=== PATIENT | female | born 1985 | race Caucasian/White ===

== ENCOUNTER 2021-10-26 06:37 | Inpatient (IN) | payer OTHER ==
[2021-10-26] VITALS (7 sets, daily range): BP systolic 113–136; BP diastolic 67–81
[~2021-10-26] VITALS: Ht 170.2 cm; Wt 93.0 kg
[2021-10-26] MEDS ORDERED: ABILIFY5 MG PO (09:29)
[2021-10-26] MEDS ORDERED: CORLANOR7.5 MG PO (09:29)
[2021-10-26] MEDS ORDERED: ABILIFY20 MG PO (09:29)
[2021-10-26] MEDS ORDERED: PLAVIX75 MG PO (09:29)
[2021-10-26] MEDS ORDERED: FLUOXETINE HCL20 MG PO (09:29)
[2021-10-26] MEDS ORDERED: ALBUTEROL SULFATE HFA 8GM INHALATION AEROSOL INH PRN (11:00)
[2021-10-26] MEDS ORDERED: ONDANSETRON HCL INJ 2MG/ML 2ML 2 MG/ML VIAL IV PRN (11:30)
[2021-10-26] MEDS: ALBUTEROL/IPRATROPIUM 3 ML NEB NEB PRN ×2 (11:40→19:20)
[2021-10-26] MEDS: PANTOPRAZOLE SOD 40 MG TABEC PO SCH (13:40)
[2021-10-26] MEDS: NIRMATRELVIR/RITONAVIR 1 EACH TABLET PO SCH ×2 (13:40→21:37)
[2021-10-26] MEDS: ATROPINE SULFATE INJ 0.4 MG/ML VIAL IV PRN ×2 (16:50→21:37)
[2021-10-26] MEDS: ZINC SULFATE 220 MG CAP PO SCH (17:00)
[2021-10-26] MEDS: ASCORBIC ACID 500 MG TAB PO SCH (17:00)
[2021-10-26] MEDS: ENOXAPARIN SOD INJ 40 MG/0.4 ML SYR SC SCH (17:00)
[2021-10-27] VITALS (8 sets, daily range): BP systolic 111–132; BP diastolic 69–78
[2021-10-27] MEDS: ATROPINE SULFATE INJ 0.4 MG/ML VIAL IV PRN ×3 (01:50→21:31)
[2021-10-27 06:51] LABS: HEMATOCRIT 37.4 % (34.2-44.1); HEMOGLOBIN 11.8 g/dL (12.0-16.0); LYMPHOCYTES # (AUTO) 1.3 (1.0-3.2); LYMPHOCYTES % 39.9 % (18.0-39.1); MEAN CORPUSCULAR HEMOGLOBIN 29.3 pg (28-32); MEAN CORPUSCULAR HGB CONC 31.6 g/dL (31-35); MEAN CORPUSCULAR VOLUME 92.8 fL (81-99); MONOCYTES # (AUTO) 0.3 (0.2-0.8); NEUTROPHILS # (AUTO) 1.6 (2.1-6.9); NEUTROPHILS % 50.5 % (38.7-80.0); PLATELET COUNT 159 x10e3/uL (140-360); RED BLOOD COUNT 4.03 x10e6/uL (3.6-5.1); RED CELL DISTRIBUTION WIDTH 14.5 % (11.7-14.4)
[2021-10-27] MEDS: ALBUTEROL/IPRATROPIUM 3 ML NEB NEB PRN ×3 (07:00→16:55)
[2021-10-27 07:06] LABS: ANION GAP 12.7 mmol/L (8-16); CALCIUM 7.4 mg/dL (8.4-10.2); CREATININE, SERUM 0.67 mg/dL (0.57-1.11); POTASSIUM 3.7 mmol/L (3.5-5.1)
[2021-10-27] MEDS ORDERED: ARIPIPRAZOLE 20 MG TAB PO SCH ×2 (09:00→11:30)
[2021-10-27] MEDS: CHOLECALCIFEROL 400 UNIT TAB PO SCH (09:13)
[2021-10-27] MEDS: CLOPIDOGREL BISULFATE 75 MG TAB PO SCH (09:13)
[2021-10-27] MEDS: ZINC SULFATE 220 MG CAP PO SCH (09:13)
[2021-10-27] MEDS: FLUOXETINE HCL 20 MG CAP PO SCH (09:13)
[2021-10-27] MEDS: NIRMATRELVIR/RITONAVIR 1 EACH TABLET PO SCH ×2 (09:13→21:14)
[2021-10-27] MEDS: ASCORBIC ACID 500 MG TAB PO SCH ×2 (09:13→16:56)
[2021-10-27] MEDS: PANTOPRAZOLE SOD 40 MG TABEC PO SCH (09:13)
[2021-10-27] MEDS: ACETAMINOPHEN 325 MG TAB PO PRN (11:00)
[2021-10-27] MEDS: GUAIFENESIN 600 MG TAB PO SCH ×2 (11:03→16:56)
[2021-10-27] MEDS: ARIPIPRAZOLE 5 MG TABLET PO SCH (12:08)
[2021-10-27] MEDS: ENOXAPARIN SOD INJ 40 MG/0.4 ML SYR SC SCH (16:56)
[2021-10-27] MEDS: ARIPIPRAZOLE 20 MG TAB PO SCH (21:13)
[2021-10-28] VITALS (8 sets, daily range): BP systolic 114–142; BP diastolic 74–87
[2021-10-28] MEDS: ALBUTEROL/IPRATROPIUM 3 ML NEB NEB PRN ×4 (00:35→19:40)
[2021-10-28 05:57] LABS: BASOPHILS % 0.3 % (0.0-1.0); HEMATOCRIT 41.1 % (34.2-44.1); HEMOGLOBIN 12.8 g/dL (12.0-16.0); LYMPHOCYTES # (AUTO) 1.3 (1.0-3.2); LYMPHOCYTES % 34.9 % (18.0-39.1); MEAN CORPUSCULAR HEMOGLOBIN 28.8 pg (28-32); MEAN CORPUSCULAR HGB CONC 31.1 g/dL (31-35); MEAN CORPUSCULAR VOLUME 92.4 fL (81-99); MONOCYTES # (AUTO) 0.3 (0.2-0.8); MONOCYTES % 7.6 % (4.4-11.3); NEUTROPHILS # (AUTO) 2.1 (2.1-6.9); NEUTROPHILS % 55.9 % (38.7-80.0); PLATELET COUNT 182 x10e3/uL (140-360); RED BLOOD COUNT 4.45 x10e6/uL (3.6-5.1); RED CELL DISTRIBUTION WIDTH 14.5 % (11.7-14.4)
[2021-10-28 06:22] LABS: ANION GAP 13.5 mmol/L (8-16); CALCIUM 8.2 mg/dL (8.4-10.2); CREATININE, SERUM 0.64 mg/dL (0.57-1.11); POTASSIUM 3.5 mmol/L (3.5-5.1)
[2021-10-28] MEDS: CLOPIDOGREL BISULFATE 75 MG TAB PO SCH (08:51)
[2021-10-28] MEDS: FLUOXETINE HCL 20 MG CAP PO SCH (08:51)
[2021-10-28] MEDS: ASCORBIC ACID 500 MG TAB PO SCH ×2 (08:51→16:55)
[2021-10-28] MEDS: ZINC SULFATE 220 MG CAP PO SCH (08:51)
[2021-10-28] MEDS: GUAIFENESIN 600 MG TAB PO SCH ×2 (08:51→16:55)
[2021-10-28] MEDS: PANTOPRAZOLE SOD 40 MG TABEC PO SCH (08:51)
[2021-10-28] MEDS: NIRMATRELVIR/RITONAVIR 1 EACH TABLET PO SCH ×2 (08:51→21:30)
[2021-10-28] MEDS: CHOLECALCIFEROL 400 UNIT TAB PO SCH (08:51)
[2021-10-28] MEDS ORDERED: SODIUM CHLORIDE 0.9% 250ML 250 ML ONE (11:06)
[2021-10-28] MEDS: ARIPIPRAZOLE 5 MG TABLET PO SCH (11:41)
[2021-10-28] MEDS: ENOXAPARIN SOD INJ 40 MG/0.4 ML SYR SC SCH (16:55)
[2021-10-28] MEDS: ARIPIPRAZOLE 20 MG TAB PO SCH (21:30)
[2021-10-29] VITALS (8 sets, daily range): BP systolic 108–120; BP diastolic 61–84
[2021-10-29] MEDS: ALBUTEROL/IPRATROPIUM 3 ML NEB NEB PRN ×4 (00:35→19:10)
[2021-10-29 05:56] LABS: BASOPHILS % 0.3 % (0.0-1.0); EOSINOPHILS % 0.6 % (0.0-6.0); HEMATOCRIT 39.7 % (34.2-44.1); HEMOGLOBIN 12.7 g/dL (12.0-16.0); LYMPHOCYTES # (AUTO) 1.7 (1.0-3.2); LYMPHOCYTES % 49.9 % (18.0-39.1); MEAN CORPUSCULAR HEMOGLOBIN 29.3 pg (28-32); MEAN CORPUSCULAR VOLUME 91.5 fL (81-99); MONOCYTES # (AUTO) 0.2 (0.2-0.8); MONOCYTES % 5.2 % (4.4-11.3); NEUTROPHILS # (AUTO) 1.5 (2.1-6.9); NEUTROPHILS % 43.1 % (38.7-80.0); PLATELET COUNT 163 x10e3/uL (140-360); RED BLOOD COUNT 4.34 x10e6/uL (3.6-5.1); RED CELL DISTRIBUTION WIDTH 14.4 % (11.7-14.4)
[2021-10-29 06:30] LABS: ALBUMIN 3.6 g/dL (3.5-5.0); ALBUMIN/GLOBULIN RATIO 1.3 (0.8-2.0); ANION GAP 13.3 mmol/L (8-16); CALCIUM 7.6 mg/dL (8.4-10.2); CREATININE, SERUM 0.69 mg/dL (0.57-1.11); POTASSIUM 3.3 mmol/L (3.5-5.1)
[2021-10-29 08:14] LABS: CHOL/HDL RATIO 4.9 (3.0-3.6); MAGNESIUM 1.9 MG/DL (1.3-2.1); PHOSPHORUS 3.7 MG/DL (2.3-4.7)
[2021-10-29 08:34] LABS: THYROID STIMULATING HORMONE 1.325 uIU/mL (0.350-4.940)
[2021-10-29] MEDS: GUAIFENESIN 600 MG TAB PO SCH ×2 (08:51→17:19)
[2021-10-29] MEDS: ASCORBIC ACID 500 MG TAB PO SCH ×2 (08:52→17:19)
[2021-10-29] MEDS: ZINC SULFATE 220 MG CAP PO SCH (08:52)
[2021-10-29] MEDS: CHOLECALCIFEROL 400 UNIT TAB PO SCH (08:52)
[2021-10-29] MEDS: NIRMATRELVIR/RITONAVIR 1 EACH TABLET PO SCH ×2 (08:52→21:33)
[2021-10-29] MEDS: CLOPIDOGREL BISULFATE 75 MG TAB PO SCH (08:52)
[2021-10-29] MEDS: FLUOXETINE HCL 20 MG CAP PO SCH (08:52)
[2021-10-29] MEDS: PANTOPRAZOLE SOD 40 MG TABEC PO SCH (09:00)
[2021-10-29] MEDS: ACETAMINOPHEN 325 MG TAB PO PRN (09:10)
[2021-10-29] MEDS ORDERED: POTASSIUM CHLORIDE 20 MEQ TAB CR PO ONE (11:15)
[2021-10-29] MEDS: DOCUSATE SODIUM 100 MG CAP PO SCH ×3 (11:20→21:00)
[2021-10-29] MEDS: ARIPIPRAZOLE 5 MG TABLET PO SCH (11:30)
[2021-10-29] MEDS ORDERED: DOCUSATE SODIUM 100 MG CAP PO SCH (13:00)
[2021-10-29] MEDS: ENOXAPARIN SOD INJ 40 MG/0.4 ML SYR SC SCH (17:19)
[2021-10-29] MEDS: ARIPIPRAZOLE 20 MG TAB PO SCH (21:33)
[2021-10-30] VITALS: BP 115/70
[2021-10-30] MEDS: ALBUTEROL/IPRATROPIUM 3 ML NEB NEB PRN ×2 (01:05→06:50)
[2021-10-30 04:35] VITALS: BP 110/74
[2021-10-30 05:53] LABS: BASOPHILS % 0.3 % (0.0-1.0); EOSINOPHILS # (AUTO) 0.1 (0.0-0.4); EOSINOPHILS % 1.6 % (0.0-6.0); HEMATOCRIT 41.2 % (34.2-44.1); HEMOGLOBIN 12.7 g/dL (12.0-16.0); LYMPHOCYTES # (AUTO) 1.6 (1.0-3.2); LYMPHOCYTES % 41.7 % (18.0-39.1); MEAN CORPUSCULAR HEMOGLOBIN 28.5 pg (28-32); MEAN CORPUSCULAR HGB CONC 30.8 g/dL (31-35); MEAN CORPUSCULAR VOLUME 92.6 fL (81-99); MONOCYTES # (AUTO) 0.4 (0.2-0.8); MONOCYTES % 9.2 % (4.4-11.3); NEUTROPHILS # (AUTO) 1.8 (2.1-6.9); NEUTROPHILS % 46.2 % (38.7-80.0); PLATELET COUNT 182 x10e3/uL (140-360); RED BLOOD COUNT 4.45 x10e6/uL (3.6-5.1); RED CELL DISTRIBUTION WIDTH 14.3 % (11.7-14.4)
[2021-10-30 06:16] LABS: ANION GAP 13.1 mmol/L (8-16); CALCIUM 7.9 mg/dL (8.4-10.2); CREATININE, SERUM 0.66 mg/dL (0.57-1.11); POTASSIUM 4.1 mmol/L (3.5-5.1)
[2021-10-30] MEDS ORDERED: AZITHROMYCIN 250 MG TAB PO SCH (08:00)
[2021-10-30 09:02] VITALS: BP 110/70
[2021-10-30] MEDS ORDERED: AZITHROMYCIN250 MG PO (09:26)
[2021-10-30] MEDS ORDERED: ZINC SULFATE50 MG PO (09:26)
[2021-10-30] MEDS ORDERED: PROTONIX40 MG/ML PO (09:26)
[2021-10-30] MEDS ORDERED: MUCINEX600 MG PO (09:26)
[2021-10-30] MEDS ORDERED: Cholecalciferol PO (09:26)
[2021-10-30] MEDS ORDERED: ASCORBIC ACID500 MG PO (09:26)
[2021-10-30] MEDS ORDERED: Docusate Sodium PO (09:26)
[2021-10-30] MEDS ORDERED: Albuterol/Ipratropium Nebulize NEB (09:26)
[2021-10-30] MEDS ORDERED: ACETAMINOPHEN325 M1 PO (09:26)
[2021-10-30] MEDS ORDERED: PAXLOVID CO-PA1 EACH PO (09:26)
[2021-10-30] MEDS ORDERED: VENTOLIN HFA18 GM INH (09:26)
[2021-10-30] MEDS: FLUOXETINE HCL 20 MG CAP PO SCH (09:34)
[2021-10-30] MEDS: ZINC SULFATE 220 MG CAP PO SCH (09:34)
[2021-10-30] MEDS: CHOLECALCIFEROL 400 UNIT TAB PO SCH (09:34)
[2021-10-30] MEDS: ASCORBIC ACID 500 MG TAB PO SCH (09:34)
[2021-10-30] MEDS: PANTOPRAZOLE SOD 40 MG TABEC PO SCH (09:34)
[2021-10-30] MEDS: CLOPIDOGREL BISULFATE 75 MG TAB PO SCH (09:34)
[2021-10-30] MEDS: GUAIFENESIN 600 MG TAB PO SCH (09:34)
[2021-10-30] MEDS: DOCUSATE SODIUM 100 MG CAP PO SCH (09:34)
[2021-10-30 09:40] VITALS: BP 110/70
[2021-10-30 12:10] VITALS: BP 112/84
== END 2021-10-30 13:05 | disposition home or self-care (01) | DRG 308 ==
LOC: MED/SURG2 07:48
PROVIDERS: ADMIT Internal Medicine; ATTEND Internal Medicine
PROC: 8E0ZXY6 Isolation (ICD-10-PCS; principal; 2021-10-26)
DX: I49.5 Sick sinus syndrome (principal); U07.1 COVID-19; P25.0 Interstitial emphysema originating in the perinatal period; G80.9 Cerebral palsy, unspecified; Z90.2 Acquired absence of lung [part of]; J45.909 Unspecified asthma, uncomplicated; I95.1 Orthostatic hypotension; R07.9 Chest pain, unspecified; E87.6 Hypokalemia; Z88.6 Allergy status to analgesic agent; Z88.5 Allergy status to narcotic agent; Z88.0 Allergy status to penicillin
CPT/HCPCS: 36415; 71045; 71046; 80048; 80053; 80061; 83036; 83735; 84100; 84443; 84484; 85025; 93005; 93306; 94640; 94799; J0456; J1650; J7050